=== PATIENT | male | born 1960 | race Caucasian/White ===

== ENCOUNTER → 2021-01-02 07:45 | Outpatient (BNVA) | payer OTHER, SELFPAY | PROVIDERS: Family Provider Family Medicine; PCP Family Medicine Adult Medicine; Visit Provider Family Medicine Adult Medicine | DX: Z00.00 Encounter for general adult medical examination without abnormal findings (principal); E66.9 Obesity, unspecified; M19.90 Unspecified osteoarthritis, unspecified site | CPT/HCPCS: 80053; 83036; 84153; 84443; 85025; 85651 ==

== ENCOUNTER → 2021-12-03 13:10 | Outpatient (BNVA) | payer SELFPAY | PROVIDERS: Family Provider Family Medicine; PCP Family Medicine Adult Medicine; Visit Provider Family Medicine Adult Medicine | DX: S67.22XA Crushing injury of left hand, initial encounter (principal); X58.XXXA Exposure to other specified factors, initial encounter | CPT/HCPCS: 73130 ==

== ENCOUNTER → 2022-05-15 07:55 | Outpatient (BNVA) | payer OTHER, SELFPAY | PROVIDERS: Family Provider Family Medicine; PCP Family Medicine Adult Medicine; Visit Provider Family Medicine Adult Medicine | DX: R73.09 Other abnormal glucose (principal); E66.9 Obesity, unspecified; M19.90 Unspecified osteoarthritis, unspecified site; Z00.00 Encounter for general adult medical examination without abnormal findings | CPT/HCPCS: 80053; 83036; 84443; 85025; G0103 ==

== ENCOUNTER → 2023-08-13 10:15 | Outpatient (BNVA) | payer MEDICAID, SELFPAY | PROVIDERS: PCP Electrodiagnostic Medicine; Visit Provider Podiatrist Foot & Ankle Surgery | DX: M25.572 Pain in left ankle and joints of left foot (principal); M95.8 Other specified acquired deformities of musculoskeletal system; D16.9 Benign neoplasm of bone and articular cartilage, unspecified | CPT/HCPCS: 73610 ==

== ENCOUNTER 2023-09-03 13:10 | Outpatient (CLI) | payer MEDICAID, SELFPAY ==
--- NOTE | 2023-09-03 13:45 | MRR_ITS ---
PROCEDURE INFORMATION: Exam: MR Left Lower Extremity Joint Without Contrast; Ankle Exam date and time: 09/03/2023 1:39 PM Age: 63 years old Clinical indication: Abnormal findings; Abnormal imaging study; XR ankle lt 08/13/23; Additional info: Bone tumor TECHNIQUE: Imaging protocol: Magnetic resonance imaging of the left lower extremity without contrast. Exam focused on the ankle. COMPARISON: CR XR ankle LT min 3V* [id number] 08/13/2023 10:23 AM FINDINGS: There is no evidence of acute fracture or dislocation. Alignment is anatomic. There is an approximately 1.7 x 1.4 x 2.1 cm nonaggressive appearing, mixed intensity, predominantly complex cystic lesion in the medial malleolus. There is mild periarticular subcortical cystic change in the tibial plafond. Bone marrow signal is otherwise normal. Mild degenerative changes are most pronounced at the tibiotalar articulation. The visualized portions of the medial, lateral and anterior ankle tendons are intact. The Achilles tendon is also intact. There is evidence of mild chronic plantar fasciitis. There is normal signal in the sinus tarsi. The anterior and posterior talofibular ligaments are intact. The calcaneofibular ligament is also intact. The visualized portions of the spring ligament and deltoid ligament complex are intact. MR/MR ankle LT wo con* [id number] IMPRESSION: 1. 1.7 x 1.4 x 2.1 cm nonaggressive appearing, mixed intensity, predominantly complex cystic lesion in the medial malleolus. 2. Evidence of mild chronic plantar fasciitis. 3. Mild degenerative changes, most pronounced at the tibiotalar articulation.
== END 2023-09-03 13:11 | disposition home or self-care (01) ==
LOC: RAD 13:11
PROVIDERS: PCP Electrodiagnostic Medicine; Visit Provider Podiatrist Foot & Ankle Surgery
DX: M19.072 Primary osteoarthritis, left ankle and foot (principal); M72.2 Plantar fascial fibromatosis
CPT/HCPCS: 73721

== ENCOUNTER → 2025-01-31 14:58 | Outpatient (BNVA) | payer MEDICARE, SELFPAY | PROVIDERS: PCP Electrodiagnostic Medicine; Visit Provider Podiatrist Foot & Ankle Surgery | DX: D16.9 Benign neoplasm of bone and articular cartilage, unspecified (principal); M25.572 Pain in left ankle and joints of left foot; M79.672 Pain in left foot | CPT/HCPCS: 73610; 99214 ==